=== PATIENT | female | born 1980 | race Caucasian/White ===

== ENCOUNTER 2025-01-30 15:09 | Emergency (ER) | payer OTHER, SELFPAY ==
--- NOTE | ~2025-01-30 | XR_ITS ---
EXAMINATION: XR CHEST CLINICAL INFORMATION: chest pain COMPARISON: None available. TECHNIQUE: 2 views of the chest were obtained. FINDINGS: Borderline enlargement of the cardiac silhouette. The hilar and mediastinal contours are normal. The lungs are clear bilaterally. There is no pneumothorax or pleural effusion. There is no focal osseous or soft tissue abnormality. XR/XR chest 2V IMPRESSION: No active pulmonary disease. Electronically signed by: Nick Gar MD 01/30/2025 04:33 PM EDT
[2025-01-30 15:20] VITALS: BP 118/78; PULSE 68; O2SAT 94
[2025-01-30 15:31] VITALS: BP 121/58; PULSE 75; RESP 18; TEMP 37; O2SAT 90; BMI 38.3
--- NOTE | 2025-01-30 15:31 | ED_ITS ---
HPI - General Adult General Chief complaint: Upper Respiratory Symptoms Stated complaint: +COVID X3D,BODYACHES,FROM [facility] PER EMS Time Seen by Provider: 01/30/25 19:41 Source: patient Mode of arrival: ambulatory Limitations: no limitations History of Present Illness ED Provider: Dr. Portillo HPI narrative: Patient no significant past medical history been coughing with body aches running nose headache loss of taste since earlier today her co-worker also sick with same and was tested positive for COVID yesterday patient has never been vaccinated and never had COVID in the past no lung issues in the past Related Data Previous Rx's ?Medication ?Instructions ?Recorded albuterol sulfate 90 mcg/actuation 2 puff inhalation Q 6H PRN 01/30/25 aerosol inhaler shortness of breath or wheez ing #8.5 grams codeine 10 mg-guaifenesin 100 mg/5 10 ml PO Q6H PRN co ugh #237 mL 01/30/25 mL oral liquid prednisone 20 mg tablet 40 mg (2 x 20 mg) PO DAILY # 10 tabs 01/30/25 Allergies Allergy/AdvReac Type Severity Reaction Status Date / Time No Known Allergies Allergy Verified 01/30/25 15:33 Review of Systems 2 Review of Systems: Yes all other systems are reviewed and are negative PMFSH Social History Social History Smoked in Last 30 Days: No Use of substances other than those prescribed or required for medical reasons: No Advance Directives: No Advance Directives Information Provided: No Do you have a plan to hurt others: No Plan Patient : No Physical Exam ED Vital Signs: Vital Signs - 24 hr 01/30/25 15:31 01/30/25 15:37 01/30/25 20:09 Temperature 98.6 F 97.8 F Pulse Rate 75 64 Respiratory Rate 18 15 Blood Pressure 121/58 L 121/86 Pulse Oximetry 90 L 95 93 Oxygen Delivery Method Room Air Nasal Cannula Room Air Oxygen Flow Rate 2 01/30/25 20:26 01/30/25 20:57 Temperature 97.8 F Pulse Rate 81 64 Respiratory Rate 20 15 Blood Pressure 121/86 Pulse Oximetry 93 Oxygen Delivery Method Room Air Oxygen Flow Rate BMI result Body Mass Index 38.3 Appearance: Alert. Oriented X3. No acute distress. Eyes: no pallor or icterus ENT: Pharynx normal Oral Mucosa moist tympanic membrane intact no erythema, Neck: Normal inspection. Neck supple. CVS: Normal heart rate and rhythm. Pulses normal. Respiratory: No respiratory distress. Equal air entry bilateral, bilateral wheezing no crackle Abd: soft, not tender Skin: Skin warm and dry. Normal skin color. Normal skin turgor. Extremities: No lower extremity edema, no calf tenderness Neuro: Oriented X 3. Course Course Course Narrative: This is an RME performed by Cait Spears, CERTIFIED FIRST ASSISTANT: Additional HPI, ROS, PE not included below will be deferred to primary provider. Patient is a 44-year-old female history of asthma who presents emergency department via EMS from [facility] for evaluation, she tested positive for COVID-19 3 days ago she is experiencing body aches, states severe head and neck pain and relieved by acetaminophen/ibuprofen, dizziness described as a spinning sensation, productive cough, chest pain. She is not taking in much oral intake, minimal fluids, yesterday only ate crackers. Exam: generalized weakness, LS diminished bilaterally, room air O2 saturation 90% placed on oxygen via nasal cannula 2 L Plan: Serum labs, ECG, CXR Medications Administered Discontinued Medications Generic Name Dose Route Start Last Admin Trade Name Freq PRN Reason Stop Dose Admin Albuterol Sulfate 2.5 mg/ 0 mg 01/30/25 19:55 01/30/25 20:22 Albuterol/Ipratropium 3 ml INHALE 01/30/25 19:56 1 dose ONCE ONE Administration Dexamethasone 10 mg 01/30/25 19:55 01/30/25 20:07 Dexamethasone 2 Mg Tablet PO 01/30/25 19:56 10 mg ONCE ONE Administration Guaifenesin/Codeine Phosphate 10 ml 01/30/25 19:56 01/30/25 20:07 Guaifen/Codeine Sf 200/20/10ml 10 Ml Liquid PO 01/30/25 19:57 10 ml ONCE ONE Administration Ibuprofen 600 mg 01/30/25 19:56 01/30/25 20:07 Ibuprofen 600 Mg Tablet PO 01/30/25 19:57 600 mg ONCE ONE Administration Medical Decision Making Medical Decision Making MDM Narrative: Patient's uncomplicated COVID with bronchitis no prior immunization chest x-ray negative saturating 93% at room air after breathing treatments feeling much better will discharge patient home advised to give using inhaler and prednisone report to the ER if increased shortness a breath Lab Data MDM Lab Attestation statement: I reviewed the patient's lab results. 01/30/25 15:53 01/30/25 15:53 Labs: Lab Results 01/30/25 Range/Units 15:53 WBC 4.8 (4.8-10.8) X10*3/uL RBC 4.67 (4.20-5.50) X10*6/uL Hgb 13.7 (12.0-16.0) g/dl Hct 41.8 (37.0-47.0) % MCV 89.5 (80.0-98.0) fL MCH 29.3 (27.0-33.0) pg MCHC 32.8 (31.0-35.0) g/dl RDW 12.8 (11.0-16.0) % Plt Count 117 L (160-400) X10*3/uL MPV 12.3 (9.4-12.3) fL Immature Gran % (Auto) 0.2 (0.0-0.4) % Neut % (Auto) 52.3 (45-73) % Lymph % (Auto) 34.1 (20-40) % [place] % (Auto) 10.7 (2-11) % Eos % (Auto) 2.5 (0-4) % Baso % (Auto) 0.2 (0-2) % Lymph # (Auto) 1.7 (1.2-4.9) X10*3/uL [place] # (Auto) 0.5 (0.1-1.2) X10*3/uL Eos # (Auto) 0.1 (0.0-0.4) X10*3/uL Baso # (Auto) 0.0 (0.0-0.2) X10*3/uL Abs Immat Gran (auto) 0.01 (0.00-0.03) X10*3/uL Absolute Neuts (auto) 2.5 (2.0-8.3) x10*3/uL Absolute Nucleated RBC 0.000 (0.0-0.012) X10*3/uL Nucleated RBC % (auto) 0.0 (0.0-0.2) /100WBC Sodium 142 (135-145) mmol/L Potassium 3.9 (3.3-5.1) mmol/L Chloride 105 (96-108) mmol/L Carbon Dioxide 30 H (22-29) mmol/L Anion Gap 11 L (12-20) BUN 5 L (9-16) mg/dL Creatinine 0.64 (0.5-1.4) mg/dL Estim Creat Clear Calc 137.2 Estimated GFR > 60 Random Glucose 91 (60-115) mg/dL Calcium 8.9 (8.4-10.2) mg/dL Magnesium 1.9 (1.6-2.6) mg/dL Total Bilirubin 0.4 (0.0-1.0) mg/dL AST 50 H (5-31) U/L ALT 47 H (0-31) U/L Alkaline Phosphatase 89 (39-117) U/L Troponin I High Sens < 2.7 (<3.5-17.0) ng/L Total Protein 7.3 (6.5-8.0) g/dL Albumin 4.3 (3.5-5.0) g/dL Influenza Type A (PCR) NEGATIVE (Negative) Influenza Type B (PCR) NEGATIVE (Negative) RSV RNA Qual (PCR) NEGATIVE (Negative) SARS-CoV-2 RNA (RT-PCR) POSITIVE A (Negative) Independent Interpretation I performed an independent interpretation of an: Plain X-Ray Interpretation: No acute Radiology Impression Discussion of test interpretation with radiology: I have reviewed the radiologist's reading. Discharge Plan Discharge Clinical Impression: COVID-19 Patient Disposition: Home, Self-Care Instructions: COVID-19 (Coronavirus Disease 2019) (ED) Additional Instructions: Use inhaler for wheezing Social distancing as advised Prednisone as prescribed Cough syrup as prescribed Follow with the PCP if not better report to ER if increased shortness a breath Prescriptions: New prednisone 20 mg tablet 40 mg PO DAILY Qty: 10 0RF codeine-guaifenesin 10-100 mg/5 mL liquid 10 ml PO Q6H PRN (Reason: cough) Qty: 237 0RF albuterol sulfate 90 mcg/actuation HFA aerosol inhaler 2 puff inhalation Q6H PRN (Reason: shortness of breath or wheezing) Qty: 8.5 0RF Interventions: ED Discharge Assessment Last Done: 01/30/25 20:57 Discharge Date/Time: 01/30/25 20:58 Print Language: Cambodian
--- NOTE | 2025-01-30 15:36 | ECG_ITS ---
Test Reason : chest pain Blood Pressure : */* mmHG Vent. Rate : 77 BPM Atrial Rate : 77 BPM P-R Int : 142 ms QRS Dur : 82 ms QT Int : 412 ms P-R-T Axes : 33 9 27 degrees QTcB Int : 466 ms Normal sinus rhythm Minimal voltage criteria for LVH, may be normal variant ( R in aVL ) Possible Anterior infarct , age undetermined Abnormal ECG No previous ECGs available Referred By: Renee Spears Electronically Signed By: TEODORO MADDEN MD
[2025-01-30 15:37] VITALS: O2SAT 95
[2025-01-30 16:01] LABS: MANUAL DIFF FLAG NO
[2025-01-30 16:02] LABS: Hematocrit 41.8 % (37.0-47.0); Hemoglobin 13.7 g/dl (12.0-16.0); Imm Gran Abs Auto 0.01 X10*3/uL (0.00-0.03); Imm Gran Pct Auto 0.2 % (0.0-0.4); Lymphocytes Absolute Auto 1.7 X10*3/uL (1.2-4.9); Mean Corpuscular HGB Conc 32.8 g/dl (31.0-35.0); Mean Corpuscular Hemoglobin 29.3 pg (27.0-33.0); Mean Corpuscular Volume 89.5 fL (80.0-98.0); NRBC Abs Auto 0.000 X10*3/uL (0.0-0.012); NRBC Pct Auto 0.0 /100WBC (0.0-0.2); Platelet Count 117 X10*3/uL (160-400); Red Blood Count 4.67 X10*6/uL (4.20-5.50); White Blood Count 4.8 X10*3/uL (4.8-10.8)
[2025-01-30 16:21] LABS: Alanine Aminotransferase 47 U/L (0-31); Albumin Level 4.3 g/dL (3.5-5.0); Alkaline Phosphatase 89 U/L (39-117); Anion Gap 11 (12-20); Aspartate Amino Transferase 50 U/L (5-31); Blood Urea Nitrogen 5 mg/dL (9-16); Calcium 8.9 mg/dL (8.4-10.2); Carbon Dioxide 30 mmol/L (22-29); Chloride 105 mmol/L (96-108); Creatinine Clr Calc Pharmacy 137.2; Estimated Glomerular Filt Rate > 60; Magnesium 1.9 mg/dL (1.6-2.6); Potassium 3.9 mmol/L (3.3-5.1); Sodium 142 mmol/L (135-145); Total Protein 7.3 g/dL (6.5-8.0)
[2025-01-30 16:34] LABS: Troponin-I High Sensitivity < 2.7 ng/L (<3.5-17.0)
[2025-01-30 16:40] LABS: Resp Syncy Virus RNA Qual PCR NEGATIVE (Negative); SARS COV2 PCR INHOUSE POSITIVE (Negative)
--- NOTE | 2025-01-30 17:24 | MHC.EDTECH ---
[facility]- Arabella Green- [phone]
[2025-01-30] MEDS: guaiFEN/Codeine SF 200/20/10ML 10 ML LIQUID PO (20:07)
[2025-01-30 20:09] VITALS: BP 121/86; PULSE 64; RESP 15; TEMP 36.6; O2SAT 93
[2025-01-30] MEDS: Albuterol Sulfate 2.5 MG, Albuterol/Iprat 2.5/0.5MG 3 ML 3 ML INHALE (20:22)
--- NOTE | 2025-01-30 20:24 | PC.NURSE ---
pt medicated per mar, tolerated whole well with water, vss
[2025-01-30 20:26] VITALS: PULSE 81; RESP 20; O2SAT 91
[2025-01-30 20:57] VITALS: BP 121/86; PULSE 64; RESP 15; TEMP 36.6; O2SAT 93
== END 2025-01-30 20:58 | disposition home or self-care (01) ==
PROVIDERS: Nurse Practitioner Family; Emergency Provider Internal Medicine
DX: U07.1 COVID-19 (principal); R05.9 Cough, unspecified
CPT/HCPCS: 71046; 80053; 83735; 84484; 85025; 87637; 93005; 94640; 99284; 99285; J8540

== ENCOUNTER → 2025-01-30 15:36 | Outpatient (BNV) | payer OTHER, SELFPAY | PROVIDERS: Emergency Provider Internal Medicine; Visit Provider Internal Medicine Cardiovascular Disease | DX: R94.31 Abnormal electrocardiogram [ECG] [EKG] (principal); R07.9 Chest pain, unspecified | CPT/HCPCS: 93010 ==

== ENCOUNTER → 2025-01-30 15:36 | Outpatient (BNV) | payer OTHER, SELFPAY | PROVIDERS: Visit Provider Radiology Diagnostic Radiology | DX: R07.9 Chest pain, unspecified (principal); R05.9 Cough, unspecified; U07.1 COVID-19 | CPT/HCPCS: 71046 ==